=== PATIENT | male | born 2000 | race Caucasian/White ===

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

== ENCOUNTER 2018-01-01 19:41 | Emergency (ER) | payer MEDICAID ==
[2017-11-04 00:56] VITALS: BMI 31.4
[~2018-01-01 19:41] MED LIST: HYDROCODONE-APA1 TAB PO
== END 2018-01-01 21:10 | disposition home or self-care (01) ==
LOC: D.ER 19:41
DX: S93.402A Sprain of unspecified ligament of left ankle, initial encounter (principal); X50.1XXA Overexertion from prolonged static or awkward postures, initial encounter; Y93.89 Activity, other specified; Y92.019 Unspecified place in single-family (private) house as the place of occurrence of the external cause

== ENCOUNTER → 2018-02-16 15:22 | Outpatient (CLI) | payer OTHER ==
[2017-11-04 00:56] VITALS: BMI 31.4
== END | disposition home or self-care (01) ==
LOC: D.MRI 15:22
DX: M25.372 Other instability, left ankle (principal)

== ENCOUNTER → 2019-06-29 11:02 | Outpatient (CLI) | payer OTHER ==
[2017-11-04 00:56] VITALS: BMI 31.4
[2019-06-29 11:49] LABS: BASOPHILS 0.4 % (0-2); EOSINOPHILS 2.4 % (0-7); HEMATOCRIT 45.6 % (42.0-54.0); HEMOGLOBIN 15.1 g/dL (13.5-17.5); IMMATURE GRANULOCYTES 0.4 % (0-5); LYMPHOCYTES 26.5 % (15-50); MCH 28.3 pg (26.0-34.0); MCHC 33.1 g/dL (31.0-37.0); MCV 85.6 fL (80.0-100.0); MEAN PLATELET VOLUME 9.5 fL (7.4-10.4); MONOCYTES 8.6 % (2-11); NEUTROPHILS 61.7 % (40-80); RBC 5.33 10x6/uL (4.20-6.10); RDW 12.9 % (11.5-14.5); WBC 7.1 10x3/uL (4.8-10.8)
[2019-06-29 11:56] LABS: PLATELET COUNT 322 10x3/uL (130-400)
[2019-06-29 12:16] LABS: ALBUMIN 4.1 g/dL (3.4-5.0); ALKALINE PHOSPHATASE 87 U/L (46-116); ALT (SGPT) 38 U/L (10-68); BILIRUBIN - TOTAL 0.79 mg/dL (0.2-1.3); CALC OSMOLALITY 281 mosm/kg (275-300); CALCIUM 8.7 mg/dL (8.5-10.1); CARBON DIOXIDE 31.2 mmol/L (21.0-32.0); CHLORIDE - SERUM 105 mmol/L (98-107); CHOL - HDL RATIO 3.9 ratio (2.3-4.9); CHOLESTEROL, TOTAL 181 mg/dL (0-200); CREATININE - SERUM 0.9 mg/dL (0.6-1.3); GLUCOSE 94 mg/dL (74-106); HDL CHOLESTEROL 47 mg/dL (32-96); LDL CHOLESTEROL 121 mg/dL (0-100); LDL-HDL RATIO 2.6 ratio (1.5-3.5); POTASSIUM - SERUM 4.2 mmol/L (3.5-5.1); PROTEIN - SERUM 7.8 g/dL (6.4-8.2); SODIUM 142 mmol/L (136-145); THYROID STIMULATING HORMONE 3.34 uIU/mL (0.36-3.74); TRIGLYCERIDE 69 mg/dL (30-200); UREA NITROGEN 10 mg/dL (7-18); eGFR NON AFRICAN AMERICAN > 90 mL/min (90-120)
[2019-06-30 07:13] LABS: RAPID PLASMA REAGIN Non Reactive (Non Reactive)
[2019-07-02 20:08] LABS: CHLAMYDIA TRACHOMATIS, NAA Negative (Negative)
== END | disposition home or self-care (01) ==
LOC: D.LAB 11:02
PROVIDERS: ATTEND Family Medicine
DX: I10 Essential (primary) hypertension (principal); Z13.6 Encounter for screening for cardiovascular disorders; H54.7 Unspecified visual loss; R53.82 Chronic fatigue, unspecified